=== PATIENT | male | born 1985 | race Caucasian/White ===

== ENCOUNTER 2020-06-09 12:45 | Emergency (ER) | payer OTHER ==
[2020-06-09] MEDS ORDERED: KETOROLAC TROMETHAMINE 60 MG/2 ML VIAL ONE (13:32)
[2020-06-09] MEDS ORDERED: ORPHENADRINE CITRATE 30 MG/ML ML ONE (13:32)
[2020-06-09] MEDS ORDERED: HYDROMORPHONE 1 MG/1 ML AMP ONE (14:51)
[2020-06-09] MEDS ORDERED: DEXAMETHASONE SOD PHOSPHATE 10MG/ML 1ML VIAL ONE (14:51)
== END 2020-06-09 15:26 | disposition home or self-care (01) ==
LOC: EDH 12:45
DX: G89.29 Other chronic pain (principal); M54.5 Low back pain; M54.6 Pain in thoracic spine; Z88.0 Allergy status to penicillin; Z98.890 Other specified postprocedural states; Z72.0 Tobacco use
CPT/HCPCS: 96372 ×4; 99284; J1100; J1170; J1885; J2360